=== PATIENT | female | born 1990 | race Caucasian/White ===

== ENCOUNTER 2020-04-13 18:39 | Observation (INO) | payer MEDICAID, OTHER ==
[~2020-04-13] VITALS: Ht 167.6 cm; Wt 90.7 kg
[2020-04-13] MEDS ORDERED: SERT50TA PO (19:16)
[2020-04-13] MEDS ORDERED: PREN-129 OR (19:16)
[2020-05-11] MEDS ORDERED: CEPH-322 PO (07:05)
== END 2020-04-13 21:27 | disposition home or self-care (01) ==
LOC: LDRP 18:39
PROVIDERS: ADMIT Specialist; ATTEND Specialist
DX: O62.9 Abnormality of forces of labor, unspecified (principal); Z3A.35 35 weeks gestation of pregnancy
CPT/HCPCS: 59025; 76818; 81002; 94760; G0378

== ENCOUNTER 2020-05-10 11:55 | Inpatient (IN) | payer MEDICAID ==
[~2020-05-10] VITALS: Ht 167.6 cm; Wt 93.0 kg
[~2020-05-10 11:55] MED LIST: PREN-129 OR; SERT50TA PO
[2020-05-10] MEDS ORDERED: DERMOPLAST 60ML BOTTLE TOP PRN (12:15)
[2020-05-10] MEDS ORDERED: WITCH HAZEL-GLYCERIN PAD TOP PRN (12:15)
[2020-05-10] MEDS ORDERED: LACT. RINGERS/OXYTOCIN 20UNITS 1,000 ML IV SCH (12:15)
[2020-05-10] MEDS ORDERED: TERBUTALINE SULFATE 1 MG/ML 1ML VIAL SC PRN (12:15)
[2020-05-10] MEDS ORDERED: PHISODERM TOP SOLN 240ML BTL TOP PRN (12:15)
[2020-05-10] MEDS ORDERED: LACTATED RINGER'S 1,000 ML IV SCH (12:15)
[2020-05-10] MEDS ORDERED: LACT. RINGERS/OXYTOCIN 20UNITS 1,000 ML IV ONE (12:15)
[2020-05-10] MEDS ORDERED: CARBOPROST TROMETHAMINE 250 MCG/1ML VIAL IM PRN (12:15)
[2020-05-10] MEDS ORDERED: METHYLERGONOVINE MALEATE 0.2 MG/ML AMP IM PRN (12:15)
[2020-05-10] MEDS ORDERED: LIDOCAINE 2%HCL (LOCAL ANESTH.) INJ 20ML MDV IJ PRN (12:15)
[2020-05-10] MEDS ORDERED: miSOPROStol 100 mcg TAB SL PRN (12:15)
[2020-05-10] MEDS ORDERED: miSOPROStol 100 mcg TAB PR PRN (12:15)
[2020-05-10] MEDS ORDERED: ONDANSETRON HCL 4 MG/2 ML VIAL IV PRN (12:15)
[2020-05-10 13:45] LABS: Potassium 3.5 mmol/L (3.5-5.1)
[2020-05-10 13:46] LABS: Basophils # (auto) 0 10 ^3/uL (0-0.2); Basophils % (auto) 0.4 % (0.0-2.0); Eosinophils # (auto) 0 10 ^3/uL (0-0.8); Eosinophils % (auto) 0.4 % (0.0-7.0); Hematocrit 35.2 % (36.0-46.0); Hemoglobin 11.5 g/dL (12.2-16.2); Lymphocytes # (auto) 2.4 10 ^3/uL (0.4-5.4); Lymphocytes % (auto) 22.1 % (10.0-50.0); Mean Corpuscular Hemoglobin 27.7 pg (28.0-32.0); Mean Corpuscular Hgb Conc. 32.6 g/dL (32.0-36.0); Monocytes # (auto) 0.8 10 ^3/uL (0-1.3); Monocytes % (auto) 7.2 % (0.0-12.0); Neutrophils # (auto) 7.7 10 ^3/uL (1.6-8.6); Neutrophils % (auto) 69.9 % (37.0-80.0); Platelet Count (auto) 272 10^3/uL (140-450); Red Blood Cells 4.14 10^6/uL (4.0-5.20); Red Cell Distribution Width 14.7 % (11.8-14.3)
[2020-05-10 13:47] LABS: Alcohol, Urine < 3.0 mg/dL (0-10); Amphetamine Screen, Urine NEGATIVE (NEGATIVE); Barbiturate Scree,Urine NEGATIVE (NEGATIVE); Benzodiazephine Screen, Urine NEGATIVE (NEGATIVE); Cannabinoid Screen, Urine POSITIVE (NEGATIVE); Cocaine Screen, Urine NEGATIVE (NEGATIVE); Opiate Scree,Urine NEGATIVE (NEGATIVE); Phencyclidine Screen, Urine NEGATIVE (NEGATIVE)
[2020-05-10 13:53] LABS: Albumin 2.5 g/dL (3.4-5.0); BUN/Creatinine Ratio 11.9; Bilirubin, Total 0.3 mg/dL (0.2-1.0); Calcium 9.1 mg/dL (8.5-10.1); Total Protein 6.9 g/dL (6.4-8.2)
[2020-05-10 14:02] LABS: Urine Bacteria NONE SEEN /hpf (None Seen); Urine Blood Negative /uL (Negative); Urine Hyaline Cast FEW /lpf (0 - 2); Urine Mucus FEW (None Seen); Urine Specific Gravity 1.021 (1.001-1.035); Urine WBC 1 /hpf (0 - 5)
[2020-05-10] MEDS: ACETAMINOPHEN 325 MG TAB PO PRN ×2 (14:11→22:49)
[2020-05-10 14:17] LABS: INR 0.93 (0.9-1.15); Partial Thromboplastin Time 24.2 sec (23.0-31.2)
[2020-05-10] MEDS ORDERED: SODIUM CHLORIDE 0.9% 1,000 ML IV ONE (14:45)
[2020-05-10] MEDS ORDERED: ACETAMINOPHEN/CODEINE#3 (300/30mg) TAB PO ONE (14:45)
[2020-05-10 15:30] VITALS: BP 133/72
[2020-05-10 18:53] VITALS: BP 139/89
[2020-05-10] MEDS ORDERED: DIPHENOXYLATE W/ATROPINE 2.5 MG TAB PO SCH (22:00)
[2020-05-10] MEDS ORDERED: SERTRALINE HCL 50 MG TAB PO SCH (22:00)
[2020-05-10 22:43] VITALS: BP 121/75
[2020-05-11 01:48] VITALS: BP 115/69
[2020-05-11 05:32] LABS: Basophils # (auto) 0 10 ^3/uL (0-0.2); Basophils % (auto) 0.1 % (0.0-2.0); Eosinophils # (auto) 0 10 ^3/uL (0-0.8); Eosinophils % (auto) 0.3 % (0.0-7.0); Hematocrit 25.5 % (36.0-46.0); Hemoglobin 8.7 g/dL (12.2-16.2); Lymphocytes # (auto) 3.9 10 ^3/uL (0.4-5.4); Lymphocytes % (auto) 26.7 % (10.0-50.0); Mean Corpuscular Hemoglobin 28.5 pg (28.0-32.0); Mean Corpuscular Hgb Conc. 34.1 g/dL (32.0-36.0); Mean Corpuscular Volume 83.6 fL (80.0-100.0); Monocytes # (auto) 1.1 10 ^3/uL (0-1.3); Monocytes % (auto) 7.9 % (0.0-12.0); Neutrophils # (auto) 9.4 10 ^3/uL (1.6-8.6); Platelet Count (auto) 259 10^3/uL (140-450); Red Blood Cells 3.05 10^6/uL (4.0-5.20); Red Cell Distribution Width 15.1 % (11.8-14.3); White Blood Cell 14.5 10^3/uL (4.4-10.8)
[2020-05-11 06:45] VITALS: BP 107/52
[2020-05-11] MEDS ORDERED: CEPH250C PO (07:05)
[2020-05-11] MEDS ORDERED: FERR27TA2 PO (07:06)
[2020-05-11] MEDS: ACETAMINOPHEN 325 MG TAB PO PRN (08:59)
[2020-05-11 11:30] VITALS: BP 133/85
[2020-05-12 06:06] LABS: RPR Non Reactive (Non Reactive)
== END 2020-05-11 11:55 | disposition home or self-care (01) | DRG 560 ==
LOC: LDRP 11:55 → OBSVTOIN 12:05
PROVIDERS: ADMIT Specialist; ATTEND Specialist
PROC: 10E0XZZ Delivery of Products of Conception, External Approach (ICD-10-PCS; principal; 2020-05-10)
PROC: 3E0P7VZ Introduction of Hormone into Female Reproductive, Via Natural or Artificial Opening (ICD-10-PCS; 2020-05-10)
DX: O77.0 Labor and delivery complicated by meconium in amniotic fluid (principal); Z3A.39 39 weeks gestation of pregnancy; Z37.0 Single live birth; Z91.040 Latex allergy status; Z20.822 Contact with and (suspected) exposure to COVID-19; R71.0 Precipitous drop in hematocrit
CPT/HCPCS: 36415; 59025; 59409; 80053; 80307; 81001; 81002; 85025; 85610; 85730; 86592; 86850; 86900; 86901; 86920; 87426; 96360; 96361; 96365; 96366; 96372; G0378; J2590